=== PATIENT | female | born 1985 | race Hispanic/Latino ===

== ENCOUNTER 2017-04-04 20:07 | Inpatient (IN) | payer BC ==
[2017-04-04] MEDS ORDERED: Acetaminophen 500 MG TAB PO PRN (20:15)
[2017-04-04] MEDS ORDERED: LR / Pitocin 40 units/1000 ml 1,000 ML IV PRN (20:15)
[2017-04-04] MEDS ORDERED: HYDROcodone/Acetaminophen 5/325 mg Tablet PO PRN (20:15)
[2017-04-04] MEDS ORDERED: Diphenoxylate HCl/Atropine Tablet PO PRN (20:15)
[2017-04-04] MEDS ORDERED: Lidocaine 2% MPF 10 ML AMP (For Epidural Use) ONE (20:15)
[2017-04-04] MEDS ORDERED: Lidocaine 1% (PF) 30 ML VIAL SC PRN (20:15)
[2017-04-04] MEDS ORDERED: Zolpidem Tartrate 5 MG TAB PO PRN (20:15)
[2017-04-04] MEDS ORDERED: Ibuprofen 800 MG TAB PO PRN (20:15)
[2017-04-04] MEDS ORDERED: Carboprost 250 MCG/ML AMP IM PRN (20:15)
[2017-04-04] MEDS ORDERED: Methylergonovine 0.2 MG/ML VIAL IM PRN (20:15)
[2017-04-04] MEDS ORDERED: Misoprostol 200 MCG TAB PR PRN (20:15)
[2017-04-04] MEDS ORDERED: Ondansetron HCl/PF 4 MG/2 ML Vial IVP PRN (20:15)
[2017-04-04] MEDS ORDERED: Penicillin G Potassium 5 MILL.UNITS in Sodium Chloride 0.9% 100 ML IVPB SCH (20:15)
[2017-04-04] MEDS ORDERED: Promethazine HCl 25 MG/ML VIAL IM PRN (20:15)
[2017-04-04 20:42] VITALS: BMI 32.0
[2017-04-04] MEDS: Lactated Ringer's 1,000 ML IV SCH (20:55)
[2017-04-04 21:15] LABS: Hemoglobin 11.1 g/dL (12.0-16.0); Mean Platelet Volume 7.4 fL (7.4-10.4); Platelet Count 237 thou/uL (130-400); RBC Distribution Width 12.5 % (11.5-14.5); Red Blood Cell (RBC) Count 3.46 mill/uL (4.20-5.40); White Blood Cell (WBC) Count 10.6 thou/uL (4.8-10.8)
[2017-04-04] MEDS: Misoprostol 100 MCG TAB VAG SCH (21:36)
[2017-04-04 21:37] LABS: ALT (SGPT) 40 U/L (8-55); AST (SGOT) 22 U/L (5-34); Albumin 3.7 g/dL (3.5-5.0); Alkaline Phosphatase 211 U/L (40-150); Anion Gap 14 mmol/L (10-20); BUN (Urea Nitrogen) 8 mg/dL (7.0-18.7); Bilirubin, Total 0.4 mg/dL (0.2-1.2); Calc. Creatinine Clearance 125 mL/min (70-130); Calcium 9.3 mg/dL (7.8-10.44); Carbon Dioxide 21 mmol/L (22-29); Chloride 105 mmol/L (98-107); Estimated GFR-MDRD Greater than 90; Globulin 2.6 g/dL (2.4-3.5); Glucose 88 mg/dL (70-105); Potassium 4.1 mmol/L (3.5-5.1); Protein, Total 6.3 g/dL (6.0-8.3); Sodium 136 mmol/L (136-145)
[2017-04-04 21:52] LABS: Syphilis Antibody Nonreactive (Nonreactive); Syphilis Antibody Index 0.03 S/CO (<1.00 Non-Reactive)
[2017-04-04] MEDS: LR 500 ML/Oxytocin 10 units 500 ML IV SCH (22:08)
[2017-04-05] MEDS: Misoprostol 100 MCG TAB VAG SCH ×4 (01:07→16:57)
[2017-04-05] MEDS: Penicillin G 2.5 MILL.units 2.5 MILL.UNITS in Premix Bag 1 BAG IVPB SCH ×5 (01:13→16:57)
[2017-04-05 02:10] LABS: HBSAg Index 0.55 S/CO (0-0.99); Hep B Surf Ag Non-Reactive S/CO (NonReactive)
[2017-04-05] MEDS: LR 500 ML/Oxytocin 10 units 500 ML IV SCH (05:19)
[2017-04-05] MEDS: Lactated Ringer's 1,000 ML IV SCH ×2 (06:00→09:34)
[2017-04-05] MEDS ORDERED: LR 500 ML/Oxytocin 10 units 500 ML IV SCH (08:08)
--- NOTE | 2017-04-05 08:10 | PDOC.LDHP ---
Labor and Delivery H&P Chief complaint: scheduled induction HPI: 32yo at 37w0d by LMP here for IOL due to cholestasis of and CHTN. s/p 2 doses cytotec overnight. s/p 3 doses PCN for GBS Current gestational age (weeks): 37 Due date: 04/26/17 Dating criteria: last menstrual period Grav: 2 Para: 1 OB History Details: h/o SPTB at 35wk, s/p 17P this Current complications: none Abnormal US findings: No Past Medical History: CHTN prev on lisinopril Current medications: pre-yisel vitamins, other (benadryl prn) Previous surgical history: none Allergies/Adverse Reactions: Allergies Allergy/AdvReac Type Severity Reaction Status Date / Time No Known Drug Allergies Allergy Verified 04/04/17 20:25 Social history: none - Physical Exam Vital signs reviewed and normal: yes General: NAD Heart: RRR Lungs: CTAB Abdomen: gravid Extremeties: no edema FHT: category 1 Conger contractions every: q3min - Vaginal Exam cm dilated: 4 Effacement: 50% Station: -2 (AROM clear) - OB Labs Blood type: B RH: positive Antibody Screen: negative HIV: negative RPR: negative HEPSAg: negative 1 hour GCT: negative GBS: positive Rubella: immune - Assessment L&D Assessment: medically indicated induction - Plan Plan: admit to L&D, labor augmentation if indicated, informed consent obtained, anesthesia consult for pain management -: CHTN no meds, no sx PIH BP nl Cholestasis, LFT wnl, BPP reassuring, EFW 15% FHT Cat 1 On pitocin, s/p AROM. GBS pos cont PCN
[2017-04-05] MEDS ORDERED: Bupivacaine 20 ML, Fentanyl 400 MCG in Sodium Chloride 0.9% 72 ML EPIDURAL SCH (08:15)
[2017-04-05] MEDS ORDERED: Sodium Chloride 0.9% 0 ML ONE (09:25)
[2017-04-05] MEDS ORDERED: ePHEDrine/0.9% NaCl/PF SYRINGE 50 mg/10 ml SLOW IVP PRN (10:03)
[2017-04-05] MEDS ORDERED: Acetaminophen 325 MG TAB PO PRN (10:03)
[2017-04-05] MEDS ORDERED: Eucerin (Mineral Oil/Petrolatum,White) 30 gm Jar TOP PRN (10:03)
[2017-04-05] MEDS ORDERED: Naloxone HCl 0.4 mg/ml Vial IVP PRN ×2 (10:03)
[2017-04-05] MEDS ORDERED: Ondansetron HCl/PF 4 MG/2 ML Vial IVP PRN ×2 (10:03→15:57)
[2017-04-05] MEDS ORDERED: diphenhydrAMINE 50 MG/ML VIAL IVP PRN (10:03)
[2017-04-05] MEDS ORDERED: Lactated Ringer's 500 ML IV PRN (10:03)
[2017-04-05] MEDS ORDERED: Promethazine HCl 25 MG/ML VIAL IM PRN (10:03)
[2017-04-05] MEDS ORDERED: Communication Order-Pharmacy FS SCH (10:15)
[2017-04-05] MEDS ORDERED: Fentanyl 4mcg/Marcaine 0.1% Cassette 100 ML EPIDURAL SCH (10:15)
[2017-04-05] MEDS ORDERED: Methylergonovine 0.2 MG/ML VIAL ONE (11:33)
[2017-04-05] MEDS ORDERED: Misoprostol 200 MCG TAB ONE (11:33)
--- NOTE | 2017-04-05 13:03 | PDOC.OPDEL ---
OB Operative/Delivery Note Delivery Dr/Surgeon: Dameon Assist: n/a Pre-Delivery Diagnosis: medically indicated induction Procedure/Post Delivery Dx: spontaneous vaginal delivery Weeks gestation: 37 Anesthesia: epidural - Findings A Sex: female Weight: 5 lb 11 oz - 1 min: 8 - 5 min: 9 - Additional Findings/Plan Placenta delivered: spontaneous Repaired Obstetrical Laceration: other (clitoral repaired with 3-0 vicryl hemostasis noted) Estimated blood loss: 200 Post delivery plan: routine recovery
[2017-04-05] MEDS ORDERED: Preparation H Ointment 28 GM TUBE PR PRN (15:57)
[2017-04-05] MEDS ORDERED: Bisacodyl 10 MG SUPP PR PRN (15:57)
[2017-04-05] MEDS ORDERED: Benzocaine/Menthol 20-0.5% 60 ML CAN TOP PRN (15:57)
[2017-04-05] MEDS ORDERED: HYDROcodone/Acetaminophen 5/325 mg Tablet PO PRN ×2 (15:57)
[2017-04-05] MEDS ORDERED: Lanolin Ointment 7 GM TUBE TOP PRN (15:57)
[2017-04-05] MEDS ORDERED: diphenhydrAMINE 25 MG CAP PO PRN (15:57)
[2017-04-05] MEDS ORDERED: Milk Of Magnesia 30 ML UDCUP PO PRN (15:57)
[2017-04-05] MEDS ORDERED: LR / Pitocin 40 units/1000 ml 1,000 ML IV SCH (15:57)
[2017-04-05] MEDS: Ibuprofen 800 MG TAB PO SCH (18:13)
[2017-04-05] MEDS: Ferrous Sulfate 325 MG TAB PO SCH (18:14)
[2017-04-05] MEDS: Docusate Calcium (SURFAK) 240 MG CAP PO SCH (22:52)
[2017-04-06] MEDS: Ibuprofen 800 MG TAB PO SCH ×4 (01:00→23:31)
[2017-04-06] MEDS: Ferrous Sulfate 325 MG TAB PO SCH ×2 (10:01→18:14)
[2017-04-06] MEDS: Prenatal Vitamin 1 TAB PO SCH (10:05)
[2017-04-06] MEDS: Docusate Calcium (SURFAK) 240 MG CAP PO SCH ×2 (10:05→23:31)
--- NOTE | 2017-04-06 10:27 | PDOC.PP ---
Post Progress Note Post Day #: 1 Subjective: no concerns, no itching, minimal lochia PO intake tolerated: yes Flatus: yes Ambulation: yes Vital Signs (12 hours) Temp Pulse Resp BP 04/06/17 08:46 98.1 F 57 L 20 126/73 04/06/17 04:15 97.7 F 64 16 103/60 04/06/17 01:00 98.1 F 59 L 16 114/67 Weight Weight 148 lb - Physical Examination General: NAD Respiratory: non-labored breathing Abdominal: no distention Fundus firm & at: below umb Skin: no rash Neurological: no gross focal deficits Psychiatric: normal affect Result Diagrams: 04/04/17 21:01 04/04/17 21:01 Additional Labs: Post Labs Blood Type B POSITIVE 04/04/17 21:01 Hep Bs Antigen Non-Reactive S/CO (NonReactive) 04/04/17 21:01 (1) Vaginal delivery Code(s): O80 - ENCOUNTER FOR FULL-TERM UNCOMPLICATED DELIVERY Status: Acute (2) Cholestasis during Code(s): O26.619 - LIVER AND BILIARY TRACT DISORD IN , UNSP TRIMESTER; K83.1 - OBSTRUCTION OF BILE DUCT Status: Acute - Assessment/Plan A?P: 32yo sp @ 37+ weeks for BP and cholestasis, BP WNL, doing well. Likely DC tomorrow.
[2017-04-07 08:28] VITALS: BP 140/84; TEMP 98.6
[2017-04-07] MEDS: Docusate Calcium (SURFAK) 240 MG CAP PO SCH (08:58)
[2017-04-07] MEDS: Prenatal Vitamin 1 TAB PO SCH (08:59)
[2017-04-07] MEDS: Ibuprofen 800 MG TAB PO SCH (08:59)
--- NOTE | 2017-04-07 12:05 | PDOC.PP ---
Post Progress Note Post Day #: 2 PO intake tolerated: yes Flatus: yes Ambulation: yes Vital Signs (12 hours) Temp Pulse Resp BP 04/07/17 08:35 98.6 F 62 20 04/07/17 08:28 98.6 F 62 20 140/84 04/07/17 04:00 98.5 F 64 18 128/78 Weight Weight 148 lb - Physical Examination General: NAD Cardiovascular: RRR Respiratory: non-labored breathing Abdominal: no distention, appropriately TTP Fundus firm & at: umb-2 Psychiatric: normal affect Result Diagrams: 04/04/17 21:01 04/04/17 21:01 Additional Labs: Post Labs Blood Type B POSITIVE 04/04/17 21:01 Hep Bs Antigen Non-Reactive S/CO (NonReactive) 04/04/17 21:01 (1) Cholestasis during Code(s): O26.619 - LIVER AND BILIARY TRACT DISORD IN , UNSP TRIMESTER; K83.1 - OBSTRUCTION OF BILE DUCT Status: Acute (2) Vaginal delivery Code(s): O80 - ENCOUNTER FOR FULL-TERM UNCOMPLICATED DELIVERY Status: Acute - Assessment/Plan VSSAF Doing well lochia < menses Rh pos RImm CHTN BP wnl, no sx PIH Cholestasis- asx DC home FU 6wk
[2017-04-07] MEDS: Ferrous Sulfate 325 MG TAB PO SCH (13:13)
== END 2017-04-07 12:55 | disposition home or self-care (01) | DRG 775 ==
LOC: L&D 20:07 → 3SW 04-05 15:47
PROVIDERS: ADMIT Student in an Organized Health Care Education/Training Program; ATTEND Student in an Organized Health Care Education/Training Program
PROC: 10E0XZZ Delivery of Products of Conception, External Approach (ICD-10-PCS; principal; 2017-04-05)
PROC: 0UQJXZZ Repair Clitoris, External Approach (ICD-10-PCS; 2017-04-05)
PROC: 4A0HXCZ Measurement of Products of Conception, Cardiac Rate, External Approach (ICD-10-PCS; 2017-04-05)
PROC: 10907ZC Drainage of Amniotic Fluid, Therapeutic from Products of Conception, Via Natural or Artificial Opening (ICD-10-PCS; 2017-04-05)
DX: O16.4 Unspecified maternal hypertension, complicating childbirth (principal); K83.1 Obstruction of bile duct; O26.62 Liver and biliary tract disorders in childbirth; O71.4 Obstetric high vaginal laceration alone; O99.344 Other mental disorders complicating childbirth; O99.824 Streptococcus B carrier state complicating childbirth; F41.9 Anxiety disorder, unspecified; Z3A.37 37 weeks gestation of pregnancy; Z37.0 Single live birth
CPT/HCPCS: 36415; 51702; 80053; 85027; 86780; 87340; A4216; J1200; J2001; J2210; J2540; J3010; J3490; J7050; J7120

== ENCOUNTER 2018-01-03 13:42 | Outpatient (CLI) | payer BC ==
--- NOTE | 2018-01-03 14:55 | ULT ---
LIMITED LEFT BREAST ULTRASOUND: Date: 01-03-18 Provided Clinical History: Left breast palpable abnormality. FINDINGS: Limited sonographic interrogation was performed of the left breast in the region of palpable concern. There is a mixed echogenicity, fairly circumscribed mass present in the region of palpable concern m easuring approximately 1.9 x 1.1 x 1.3 cm. There is no evidence for shadowing. The margins of this pr ocess appear fairly smooth. IMPRESSION: Solid mass is present in the region of palpable concern. Ultrasound guided biopsy is recommended for histologic diagnosis. Results and recommendations discussed with the patient and questions answered. BIRADS category 4 - suspicious abnormality. POS: [facility]
== END 2018-01-03 13:43 | disposition home or self-care (01) ==
LOC: BICMAMMO 13:42
PROVIDERS: ATTEND Student in an Organized Health Care Education/Training Program
DX: N63.20 Unspecified lump in the left breast, unspecified quadrant (principal); Z80.3 Family history of malignant neoplasm of breast
CPT/HCPCS: 77066; G0279

== ENCOUNTER → 2018-01-10 | Day surgery (SDC) | payer BC ==
--- NOTE | 2018-01-10 14:51 | ULT ---
ULTRASOUND GUIDED LEFT BREAST BIOPSY: Date: 01-10-18 Provided Clinical History: Left breast mass. FINDINGS: Informed consent was obtained from the patient. Limited sonographic interrogation was performed of th e left breast in the region of mammographic concern. The 2 o'clock left breast mass was localized son ographically. The skin overlying this region was prepped and draped in the usual sterile manner. The soft tissues were infiltrated with 1% buffered Lidocaine. A small skin incision was made. Under cont inuous sonographic guidance, a biopsy device was advanced adjacent to the lesion and five core sample s were obtained. Subsequently, continuously sonographic guidance was utilized to direct a biopsy clip deployment device adjacent to the lesion with deployment of the biopsy site marker. The needle was w ithdrawn and hemostatis achieved. No immediate complications. The fluid echogenicity component to thi s mass was noted to be diminished post biopsy and clear fluid was noted draining through the biopsy t rocar during the course of the procedure. IMPRESSION: Technically successful ultrasound guided left breast biopsy. Please correlate with histology results to follow. POS: [facility]
== END ==
LOC: BICULT 12:13
PROVIDERS: ATTEND Surgery
PROC: 0HBU3ZX Excision of Left Breast, Percutaneous Approach, Diagnostic (ICD-10-PCS; principal; 2018-01-10)
DX: N61.0 Mastitis without abscess (principal)
CPT/HCPCS: 19100; 76942; 88305

== ENCOUNTER 2019-08-15 13:28 | Outpatient (CLI) | payer BC ==
--- NOTE | 2019-08-15 14:48 | MMO ---
Bilateral MAMMO Bilat Diag [facility]LLI. CLINICAL HISTORY: Patient is 34 years old and is seen for diagnostic exam and lump or thickening in the left breast at 2 o'clock. The patient has no family history of breast cancer. The patient has no personal history of cancer. The patient has a history of left Ultrasound Guided Core Biopsy in January, - benign. VIEWS: The views performed were: bilateral craniocaudal with tomosynthesis; bilateral mediolateral oblique with tomosynthesis; and bilateral mediolateral with tomosynthesis. FILMS COMPARED: The present examination has been compared to prior imaging studies performed at [facility] on 01/03/2018 and 08/15/2019. This study has been interpreted with the assistance of computer-aided detection. MAMMOGRAM FINDINGS: The breasts are heterogeneously dense, which could obscure a lesion on mammography. Finding 1: There are stable benign appearing calcifications seen in both breasts. Finding 2: There is a biopsy clip seen in the left breast. There are no suspicious masses, suspicious calcifications, or new areas of architectural distortion. IMPRESSION: THERE IS NO MAMMOGRAPHIC EVIDENCE OF MALIGNANCY. A ROUTINE FOLLOW-UP MAMMOGRAM AT AGE 41 IS RECOMMENDED. THE RESULTS OF THIS EXAM WERE SENT TO THE PATIENT. ACR BI-RADS Category 2 - Benign finding MAMMOGRAPHY NOTE: 1. A negative mammogram report should not delay a biopsy if a dominant of clinically suspicious mass is present. 2. Approximately 10% to 15% of breast cancers are not detected by mammography. 3. Adenosis and dense breasts may obscure an underlying neoplasm. Reported by: VIJAYA NUNEZ MD Electonically Signed: [id number]
--- NOTE | 2019-08-15 16:04 | ULT ---
LEFT BREAST ULTRASOUND: 08/15/19 COMPARISON: Mammogram of 08/15/19 and mammogram and ultrasound 01/03/18. HISTORY: Palpable mass and tenderness in the 2 o'clock position of the left breast. TECHNIQUE: Multiplanar allen scale and color Doppler images were obtained in a left breast ultrasound. FINDINGS: There is a stable area of mixed hyperechoic and hypoechoic tissue. This is unchanged compared to the prior exam before the biopsy which reported benign breast tissue and chronic mastitis. No suspicious shadowing or mass is seen. IMPRESSION: BIRADS 2: Benign Finding(s) Routine annual screening mammography (for women over age 40). POS: [facility]
== END 2019-08-15 13:29 | disposition home or self-care (01) ==
LOC: BICMAMMO 13:28
PROVIDERS: ATTEND Student in an Organized Health Care Education/Training Program
DX: N63.20 Unspecified lump in the left breast, unspecified quadrant (principal)
CPT/HCPCS: 77066; G0279